=== PATIENT | male | born 1980 | race Caucasian/White ===

== ENCOUNTER 2023-04-01 10:11 | Emergency (ER) | payer MEDICARE, MEDICAID, SELFPAY ==
[2023-04-01 10:13] VITALS: BP 139/90; PULSE 83; RESP 20; TEMP 36.7; O2SAT 95; BMI 34.1
--- NOTE | 2023-04-01 10:25 | NURSING ---
NO OLD EKGS
--- NOTE | 2023-04-01 11:01 | EDS_ITS ---
HPI History of Present Illness Chief Complaint: Chest Pain Informant: patient Onset/Context/Timing Onset: Yesterday Context: Sudden Onset Timing: Continuous Quality: Stabbing, aching, pressure Location: Left chest Worsened by: Movement of chest and arm Relieved by: Nothing Narrative Narrative: Patient presents with chest pain that began yesterday. Patient states he slid off of a wet platform and landed on the left side of his chest. Patient states his pain is worse with movement of his arm and his chest. Patient describes his pain as pressure, aching, and stabbing. Patient states it is over the left side of his chest. Patient states it radiates into his back. Patient states nothing seems to help with it. Patient denies any nausea or vomiting. Patient denies any shortness of breath or cough. Patient admits to some palpitations. [facility] Medical History (Updated 04/01/23 @ 13:[address] Derek Birmingham DO) Anxiety Asthma COPD (chronic obstructive pulmonary disease) Depression PFO (patent foramen ovale) Seizures Home Medications divalproex 500 mg tablet,delayed release (Depakote) 750 mg PO BID 04/01/23 [History Last Taken Unknown] mirtazapine 15 mg tablet (Remeron) 15 mg PO QHS 04/01/23 [History Last Taken Unknown] Allergy/AdvReac Type Severity Reaction Status Date / Time amoxicillin Allergy Intermediate Rash Verified 04/01/23 10:20 Penicillins Allergy Intermediate Rash Verified 04/01/23 10:20 bee venom protein (honey bee) Allergy Swelling Verified 04/01/23 10:20 Surgical History (Updated 04/01/23 @ 11:[address] Derek Birmingham DO) History of cholecystectomy Hx of foot surgery Hx of unilateral orchiectomy Social History Smoking Status: Current every day smoker tobacco type: e-cigarettes ROS ROS ED Constitutional Constitutional ED: Denies chills or fever(s) Eyes Eyes: Denies blurry vision or change in vision ENT ENT ED: Denies rhinorrhea or sore throat Cardiovascular Cardiovascular: Reports chest pain; Denies palpitations Respiratory/Chest Respiratory/Chest: Denies cough or dyspnea Gastrointestinal Gastrointestinal: Denies nausea or vomiting Genitourinary Genitourinary ED: Denies dysuria or hematuria Musculoskeletal Musculoskeletal: Reports back pain; Denies neck pain Integumentary Denies abscess or rash Neurologic Neurologic: Denies headache(s) or weakness Allergic/Immunologic Allergic/Immunologic ED: Denies mouth swelling or urticaria EXAM Physical Exam Const Vital Signs: 04/01/23 10:13 04/01/23 11:14 Temperature 98.1 F Temperature Source Oral Pulse Rate 83 77 Respiratory Rate 20 H Blood Pressure 139/90 H 137/91 H Blood Pressure Mean 106 106 Pulse Ox 95 Oxygen Delivery Method Room Air Positive well nourished and well developed General Appearance ED: well developed and NAD HEENT Reports moist mucous membranes Neck supple and no JVD Chest Wall Chest Narrative: There is tenderness over the left anterior chest. There is also tenderness over the left posterior ribs. There is no bony crepitance or step-off. There is no edema or ecchymosis. Resp normal respiratory effort and clear to auscultation bilaterally Cardio regular rate and regular rhythm GI normal to inspection, nondistended, normoactive bowel sounds and non-tender Palpation: soft Extremity normal to inspection General Extremety ED: Negative for edema or tenderness General Extremity: Negative for edema Neuro oriented x3, CN's II-XII intact bilaterally and no sensory deficits noted Sensorium / Orientation: alert Motor Exam: strength 5/5 throughout Psych mental status grossly normal Skin no rashes or lesions noted MDM MDM MDM Narrative Medical decision making narrative: Differential diagnosis includes musculoskeletal pain, rib fracture, pneumothorax, cardiac dysrhythmia, and cardiac ischemia. Patient has a Wells score of 0. Patient is PERC negative. I do not feel this is from pulmonary embolism. EKG will be obtained to assess for cardiac dysrhythmia and cardiac ischemia. CBC will be obtained to assess for anemia and leukocytosis. Basic metabolic profile will be obtained to assess for electrolyte abnormality and renal function. High-sensitivity troponin will be obtained to assess for cardiac ischemia. Chest x-ray will be obtained to assess for pneumonia, pneumothorax, and rib fracture. Lab Data Attestation: I reviewed the patient's lab results. Lab results narrative: CBC was reviewed. White blood cell count was slightly low at 3.7. The remainder was within normal limits. Basic metabolic profile was reviewed and was within normal limits. High-sensitivity troponin was reviewed and was normal at 4. Labs: Laboratory Results - last 24 hr 04/01/23 11:15 WBC 3.7 L RBC 4.89 Hgb 14.7 Hct 41.5 MCV 84.9 MCH 30.1 MCHC 35.4 RDW Std Deviation 37.1 RDW Coeff of Wu 12.2 Plt Count 188 MPV 10.5 Immature Gran % (Auto) 0.000 Neut % (Auto) 52.0 Lymph % (Auto) 33.0 [place] % (Auto) 11.5 H Eos % (Auto) 3.2 Baso % (Auto) 0.3 Absolute Neuts (auto) 1.9 L Absolute Lymphs (auto) 1.23 Nucleated RBC % 0 Sodium 139 Potassium 3.5 Chloride 107 Carbon Dioxide 27.0 Anion Gap 5 BUN 13 Creatinine 0.95 Estim Creat Clear Calc 98.00 Est GFR (MDRD) Af Amer 111 Est GFR (MDRD) Non-Af 92 BUN/Creatinine Ratio 13.6 Glucose 84 Calcium 8.9 Troponin I High Sens 4 Radiography Chest X-Ray - ED: 2 View, Read by ED Physician, Read by Radiologist and No Acute Disease Diagnostic Testing: Clinical Impression(s) from Imaging Studies Chest X-Ray 04/01/23 11:20 IMPRESSION: Normal x-ray examination of the chest. Electronically Signed: Pj Butts MD at 12:14 EDT , PA and lateral chest x-ray was obtained. There are 2 views. On my independent interpretation, lung crenshaw are clear. There is normal cardiac silhouette. Bony thorax is normal. There is no acute process noted. Radiologist also interpreted the x-ray and agrees. EKG Initial EKG: Attestation: I personally reviewed and interpreted this EKG as follows: Interpretation: Sinus Rhythm (71) and Non-Specific ST Changes Comments: EKG was obtained. On my independent interpretation, it showed a normal sinus rhythm with a rate of 71. OK interval, QRS interval, and QTc intervals were all normal. Sharon was normal. There there is left ventricular hypertrophy nonspecific ST-T wave changes. Prior EKG tracings: not available for review Prior: No Prior Treatment and Re-Evaluation :: Patient was advised of his findings. Patient has a HEART score of 2. Patient was advised that this is low risk for acute cardiac event. Patient was advised that this is most likely musculoskeletal pain. Patient was instructed take Tylenol or ibuprofen as needed for pain. Patient was instructed to follow-up with his primary care physician in 5 to 7 days. Patient understood and was agreeable with the plan. All questions were answered. Discharge Plan Triage Chief Complaint: Chest Pain ED Provider: Derek Birmingham Dx/Rx/DC Orders Clinical Impression: Chest wall pain, Fall Instructions: ED Chest Wall Contusion Prescriptions: No Action divalproex [Depakote] 500 mg tablet,delayed release (DR/EC) 750 mg PO BID mirtazapine [Remeron] 15 mg tablet 15 mg PO QHS Primary Care Provider: Care Physician,No Primary Referrals: Magdalena Hillman MD [Med Staff - [employer] [facility] [employer] [facility]] - 5-7 Days Care Physician,No Primary [Primary Care Provider] - Disposition Disposition: Home, Self Care
--- NOTE | 2023-04-01 11:11 | EKG12_ITS ---
Test Reason : CP Blood Pressure : / mmHG Vent. Rate : 071 BPM Atrial Rate : 071 BPM P-R Int : 174 ms QRS Dur : 104 ms QT Int : 382 ms P-R-T Axes : 049 -45 016 degrees QTc Int : 415 ms Normal sinus rhythm Left anterior fascicular block Moderate voltage criteria for LVH, may be normal variant ( R in aVL , Markus product ) Abnormal ECG Confirmed by PHUONG DAVID, ORALIA ([id number]), news assignment editor SIMONE FALLON ([id number]) on 04/07/2023 2:14:40 PM Referred By: HOMA/JD Confirmed By:ORALIA BACA MD
[2023-04-01 11:14] VITALS: BP 137/91; PULSE 77
[2023-04-01] MEDS: Naproxen 250 MG Tablet 500 MG PO (11:18)
--- NOTE | 2023-04-01 11:20 | RAD_ITS ---
STUDY: X-RAY CHEST REASON FOR EXAM: Male, 42 years old. Chest pain TECHNIQUE: PA and lateral views of the chest. COMPARISON: None. FINDINGS: EKG electrodes are seen. The lungs are clear and expanded. There is no demonstrated pleural abnormality. Normal size heart. Normal mediastinum and lianne. Normal visualized pulmonary arteries. Normal visualized aortic arch and descending thoracic aorta. Normal visualized thoracic spine. Normal visualized ribs, clavicles, and shoulders. There is no demonstrated abnormality of the visualized soft tissue structures of the upper abdomen. RAD/Chest PA and Lateral IMPRESSION: Normal x-ray examination of the chest. Electronically Signed: Pj Butts MD at 12:14 EDT ,
[2023-04-01 11:27] LABS: Absolute Lymphocyte Count 1.23 X10^3/uL (0.83-4.51); Absolute Neutrophil Count 1.9 X10^3/uL (2.0-7.7); Basophil# 0.01 X10^3/uL; Basophil% 0.3 % (0-1); Eosinophil# 0.12 X10^3/uL; Eosinophils% 3.2 % (0-5); Hematocrit 41.5 % (40-54); Hemoglobin 14.7 g/dL (13.0-16.5); Lymphocyte # 1.23 X10^3/ul (0.83-4.51); Mean Corp Hgb Conc 35.4 g/dL (32-36); Mean Corpuscular Hgb 30.1 pg (27.0-32.0); Mean Corpuscular Volume 84.9 fL (80-94); Mean Platelet Vol. 10.5 fl (6.2-12.0); Monocyte# 0.43 X10^3/uL; Monocyte% 11.5 % (0-10); NRBC Flagged by Analyzer 0 % (0-5); Neutrophil # 1.94 X10^3/uL (2.7-7.7); Platelet Count 188 K/mm3 (150-450); RBC Distribution Width CV 12.2 % (11.6-14.6); RBC Distribution Width SD 37.1 fl (35.1-43.9); Red Blood Count 4.89 M/mm3 (4.6-6.2); White Blood Count 3.7 K/mm3 (4.4-11.0)
[2023-04-01 11:50] LABS: Anion Gap 5 (5-15); BUN 13 mg/dL (7-18); BUN/Creat Ratio 13.6 RATIO (10-20); Calcium,Total 8.9 mg/dL (8.5-10.1); Chloride 107 mmol/L (98-107); Creatinine, Serum 0.95 mg/dL (0.70-1.30); EST Glomerular Filtration Rate 92 mL/min (>60); Est Glom Filt Rate - Afr Amer 111 mL/min (>60); Glucose 84 mg/dL (74-106); Potassium 3.5 mmol/L (3.5-5.1); Sodium Level 139 mmol/L (136-145); Troponin-I HS 4 pg/mL (3.0-78.0)
== END 2023-04-01 13:14 | disposition home or self-care (01) ==
PROVIDERS: Emergency Provider Emergency Medicine; Visit Provider Emergency Medicine
DX: R07.89 Other chest pain (principal); F17.290 Nicotine dependence, other tobacco product, uncomplicated
CPT/HCPCS: 71046; 80048; 84484; 85025; 93005; 99284; A4216